=== PATIENT | female | born 1960 | race Two or more races ===

== ENCOUNTER 2019-03-11 14:26 | Emergency (ER) | payer OTHER ==
[2019-03-11 14:31] VITALS: BP 145/90; PULSE 74; TEMP 98.3; BMI 26.9
[2019-03-11] MEDS ORDERED: IBUPROFEN 400 MG TABLET (FP) PO ONE ×2 (15:14→15:19)
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
== END 2019-03-11 17:55 | disposition home or self-care (01) ==
LOC: JERFT 14:26
DX: M54.2 Cervicalgia (principal); M25.512 Pain in left shoulder; M25.511 Pain in right shoulder; V49.59XA Passenger injured in collision with other motor vehicles in traffic accident, initial encounter; Y92.414 Local residential or business street as the place of occurrence of the external cause; W22.12XA Striking against or struck by front passenger side automobile airbag, initial encounter; Y93.89 Activity, other specified; Y99.8 Other external cause status
CPT/HCPCS: 72125-TC; 99282-25